=== PATIENT | male | born 1950 | race Asian ===

== ENCOUNTER 2016-09-26 12:33 | Outpatient (CLI) | payer OTHER ==
[~2016-09-26 12:33] MED LIST: ALLO300T23 PO; BENICAR20 MG PO; CALCITRIOL0.5 MCG OR; COLC0.6T6 PO; COZAAR25 MG PO; FERROUS SULF324 MG PO; FURO40TA93 PO; GLYB5TAB65 PO; HYDROCODONE; LIPITOR20 MG PO; LORTAB 10-325 M1 TAB PO; METO5TAB38 PO; OMEP20CA PO; ONDA4TAB3 PO; PANT40TA PO; PREDNISONE5 MG PO; TEMA30CA18 PO; TRAM50TA PO; VITAMIN D5000 UNIT OR
[2016-09-26 13:03] LABS: POTASSIUM 5.6 mmol/L (3.6-5.2)
== END 2016-09-26 22:40 | disposition home or self-care (01) ==
LOC: LAB 12:33
PROVIDERS: Internal Medicine Cardiovascular Disease
DX: I51.7 Cardiomegaly (principal); I27.2 Other secondary pulmonary hypertension; I25.10 Atherosclerotic heart disease of native coronary artery without angina pectoris; E11.9 Type 2 diabetes mellitus without complications; Z79.899 Other long term (current) drug therapy; Z51.81 Encounter for therapeutic drug level monitoring; J96.00 Acute respiratory failure, unspecified whether with hypoxia or hypercapnia
CPT/HCPCS: 80053; 80061

== ENCOUNTER 2017-02-20 11:31 | Outpatient (CLI) | payer OTHER | END 2017-02-20 12:35 | disposition home or self-care (01) | LOC: LAB 11:31 | DX: D53.8 Other specified nutritional anemias (principal); M17.0 Bilateral primary osteoarthritis of knee; M1A.09X1 Idiopathic chronic gout, multiple sites, with tophus (tophi) | CPT/HCPCS: 84550 ==

== ENCOUNTER 2017-05-07 00:42 | Outpatient (CLI) | payer OTHER | END 2017-05-07 00:48 | disposition short-term general hospital (02) | LOC: AMB 00:42 | DX: J45.901 Unspecified asthma with (acute) exacerbation (principal) | CPT/HCPCS: A0425; A0427 ==

== ENCOUNTER 2017-05-07 00:50 | Emergency (ER) | payer OTHER ==
[~2017-05-07] VITALS: Ht 177.8 cm; Wt 117.9 kg
[2017-05-07 02:01] LABS: PLATELET COUNT 268 K/uL (142-355)
[2017-05-07 02:23] LABS: POTASSIUM 3.8 mmol/L (3.6-5.2)
[2017-05-07 04:10] VITALS: BP 127/79; TEMP 98.4
== END 2017-05-07 04:12 | disposition home or self-care (01) ==
LOC: ED 00:50
DX: R06.09 Other forms of dyspnea (principal); N18.9 Chronic kidney disease, unspecified; I10 Essential (primary) hypertension; I44.7 Left bundle-branch block, unspecified
CPT/HCPCS: 80053; 80307; 81000; 85027; 93005; 94640; 94664; 94760; 96374; 96375; 99284; G0479; J1642; J1940; J2270

== ENCOUNTER 2017-05-25 07:35 | Outpatient (CLI) | payer OTHER ==
[2017-05-25] MEDS ORDERED: KRISTALOSE20 GM OR (08:24)
[2017-05-25] MEDS ORDERED: HYDR25CA25 PO (08:24)
[2017-05-25] MEDS ORDERED: LIPITOR40 MG PO (08:25)
[2017-05-25] MEDS ORDERED: METOCLOPRAM10 MG OR (08:26)
[2017-05-25] MEDS ORDERED: METO5TAB38 PO (08:27)
[2017-05-25] MEDS ORDERED: PROTONIX20 MG PO (08:27)
[2017-05-25] MEDS ORDERED: PHOSLO667 MG OR (08:28)
[2017-05-25] MEDS ORDERED: [UNRECOGNIZED DRUG - CODE] INJ (08:29)
[2017-05-25] MEDS ORDERED: ASPIRIN 8181 MG PO (08:30)
[2017-05-25] MEDS ORDERED: BENADRYL ALLERG25 MG OR (08:31)
[2017-05-25] MEDS ORDERED: CARBIDOPA25 MG PO (08:31)
[2017-05-25] MEDS ORDERED: CARBTAB6 PO (08:32)
[2017-05-25] MEDS ORDERED: CARV3.12 PO (08:33)
[2017-05-25] MEDS ORDERED: CLOPIDOGREL75 MG PO (08:34)
[2017-05-25] MEDS ORDERED: DOCU100C10 PO (08:34)
[2017-05-25] MEDS ORDERED: DIALYVITE800 MG OR (08:35)
[2017-05-25] MEDS ORDERED: TRAM50TA PO (08:36)
[2017-05-25] MEDS ORDERED: VIAGRA50 MG OR (08:37)
== END 2017-05-25 07:41 | disposition short-term general hospital (02) ==
LOC: AMB 07:35
DX: R06.09 Other forms of dyspnea (principal)
CPT/HCPCS: A0425; A0427

== ENCOUNTER 2017-05-25 07:48 | Emergency (ER) | payer OTHER ==
[~2017-05-25] VITALS: Ht 180.3 cm; Wt 113.4 kg
[2017-05-25 07:54] VITALS: TEMP 97.9
[2017-05-25 08:19] LABS: PLATELET COUNT 224 K/uL (142-355)
[2017-05-25] MEDS ORDERED: HYDR25CA25 PO (08:24)
[2017-05-25] MEDS ORDERED: KRISTALOSE20 GM OR (08:24)
[2017-05-25] MEDS ORDERED: LIPITOR40 MG PO (08:25)
[2017-05-25] MEDS ORDERED: METOCLOPRAM10 MG OR (08:26)
[2017-05-25] MEDS ORDERED: METO5TAB38 PO (08:27)
[2017-05-25] MEDS ORDERED: PROTONIX20 MG PO (08:27)
[2017-05-25] MEDS ORDERED: PHOSLO667 MG OR (08:28)
[2017-05-25] MEDS ORDERED: [UNRECOGNIZED DRUG - CODE] INJ (08:29)
[2017-05-25] MEDS ORDERED: ASPIRIN 8181 MG PO (08:30)
[2017-05-25] MEDS ORDERED: CARBIDOPA25 MG PO (08:31)
[2017-05-25] MEDS ORDERED: BENADRYL ALLERG25 MG OR (08:31)
[2017-05-25] MEDS ORDERED: CARBTAB6 PO (08:32)
[2017-05-25 08:33] LABS: POTASSIUM 4.6 mmol/L (3.6-5.2)
[2017-05-25] MEDS ORDERED: CARV3.12 PO (08:33)
[2017-05-25] MEDS ORDERED: CLOPIDOGREL75 MG PO (08:34)
[2017-05-25] MEDS ORDERED: DOCU100C10 PO (08:34)
[2017-05-25] MEDS ORDERED: DIALYVITE800 MG OR (08:35)
[2017-05-25] MEDS ORDERED: TRAM50TA PO (08:36)
[2017-05-25] MEDS ORDERED: VIAGRA50 MG OR (08:37)
[2017-05-25 11:10] VITALS: BP 115/70
== END 2017-05-25 12:04 | disposition home or self-care (01) ==
LOC: ED 07:48
DX: J06.9 Acute upper respiratory infection, unspecified (principal); N18.5 Chronic kidney disease, stage 5; I44.7 Left bundle-branch block, unspecified
CPT/HCPCS: 80053; 85027; 93005; 96374; 99284; J1642

== ENCOUNTER 2017-05-29 03:44 | Outpatient (CLI) | payer OTHER ==
[~2017-05-29 03:44] MED LIST changes: +ASPIRIN 8181 MG PO; +BENADRYL ALLERG25 MG OR; +CARBIDOPA25 MG PO; +CARBTAB6 PO; +CARV3.12 PO; +CLOPIDOGREL75 MG PO; +DIALYVITE800 MG OR; +DOCU100C10 PO; +HYDR25CA25 PO; +KRISTALOSE20 GM OR; +LIPITOR40 MG PO; +METOCLOPRAM10 MG OR; +PHOSLO667 MG OR; +PROTONIX20 MG PO; +VIAGRA50 MG OR; +[UNRECOGNIZED DRUG - CODE] INJ
== END 2017-05-29 03:50 | disposition short-term general hospital (02) ==
LOC: AMB 03:44
DX: R06.09 Other forms of dyspnea (principal)
CPT/HCPCS: A0425; A0427

== ENCOUNTER 2017-05-29 03:50 | Emergency (ER) | payer OTHER ==
[~2017-05-29] VITALS: Ht 180.3 cm; Wt 113.4 kg
[2017-05-29 04:31] LABS: PLATELET COUNT 242 K/uL (142-355)
[2017-05-29 04:52] LABS: POTASSIUM 4.1 mmol/L (3.6-5.2)
[2017-05-29 05:52] LABS: PARTIAL THROMBOPLASTIN TIME > 192.0 SECONDS (24.5-33.6)
[2017-05-29 06:16] VITALS: BP 145/73; TEMP 98.2
== END 2017-05-29 06:18 | disposition home or self-care (01) ==
LOC: ED 03:50
DX: I50.9 Heart failure, unspecified (principal); N18.6 End stage renal disease; Z99.2 Dependence on renal dialysis; I44.7 Left bundle-branch block, unspecified
CPT/HCPCS: 36415; 36600; 51702; 80053; 81000; 82550; 82553; 82805; 83880; 84484; 85027; 85610; 85730; 93005; 96374; 96375; 99283; J1642; J1940; J2270; J2930

== ENCOUNTER 2017-06-15 22:27 | Outpatient (CLI) | payer OTHER ==
[2017-06-16] MEDS ORDERED: ONDA4TAB3 PO (00:31)
[2017-06-16] MEDS ORDERED: GLIP10TA55 PO (00:31)
[2017-06-16] MEDS ORDERED: ALLO100T22 PO (00:32)
[2017-06-16] MEDS ORDERED: SENNOSIDES8.6 MG PO (00:33)
[2017-06-16] MEDS ORDERED: VITAMIN D32000 UNIT PO (00:34)
[2017-06-16] MEDS ORDERED: CASCARA SAGR450 MG PO (00:34)
[2017-07-31] MEDS ORDERED: OMEPRAZOLE20 M1 PO (00:29)
[2017-07-31] MEDS ORDERED: ONDA4TAB3 PO (00:29)
[2017-07-31] MEDS ORDERED: GLIP10TA55 PO (15:49)
[2017-07-31] MEDS ORDERED: PREDNISONE10 MG OR (16:00)
[2017-07-31] MEDS ORDERED: ROPINIROLE0.25 MG PO (16:02)
== END 2017-06-15 22:37 | disposition short-term general hospital (02) ==
LOC: AMB 22:27
DX: R06.02 Shortness of breath (principal); I50.9 Heart failure, unspecified; Z99.81 Dependence on supplemental oxygen
CPT/HCPCS: A0425; A0427

== ENCOUNTER 2017-06-15 22:35 | Emergency (ER) | payer OTHER ==
[~2017-06-15] VITALS: Ht 177.8 cm; Wt 147.4 kg
[2017-06-15 23:55] LABS: POTASSIUM 4.6 mmol/L (3.6-5.2)
[2017-06-16] MEDS ORDERED: GLIP10TA55 PO (00:31)
[2017-06-16] MEDS ORDERED: ONDA4TAB3 PO (00:31)
[2017-06-16] MEDS ORDERED: ALLO100T22 PO (00:32)
[2017-06-16] MEDS ORDERED: SENNOSIDES8.6 MG PO (00:33)
[2017-06-16] MEDS ORDERED: CASCARA SAGR450 MG PO (00:34)
[2017-06-16] MEDS ORDERED: VITAMIN D32000 UNIT PO (00:34)
[2017-06-16 03:41] VITALS: BP 156/91; TEMP 98.4
[2017-07-31] MEDS ORDERED: ONDA4TAB3 PO (00:29)
[2017-07-31] MEDS ORDERED: OMEPRAZOLE20 M1 PO (00:29)
[2017-07-31] MEDS ORDERED: GLIP10TA55 PO (15:49)
[2017-07-31] MEDS ORDERED: PREDNISONE10 MG OR (16:00)
[2017-07-31] MEDS ORDERED: ROPINIROLE0.25 MG PO (16:02)
== END 2017-06-16 03:44 | disposition short-term general hospital (02) ==
LOC: ED 22:35
PROVIDERS: Specialist
DX: I50.9 Heart failure, unspecified (principal); N18.9 Chronic kidney disease, unspecified; R00.0 Tachycardia, unspecified; I44.7 Left bundle-branch block, unspecified
CPT/HCPCS: 36591; 36600; 80053; 82805; 83605; 83880; 84484; 85379; 93005; 96365; 96366; 96375; 99285; J1940; J3490

== ENCOUNTER 2017-06-16 03:38 | Outpatient (CLI) | payer OTHER ==
[~2017-06-16 03:38] MED LIST changes: +ALLO100T22 PO; +CASCARA SAGR450 MG PO; +GLIP10TA55 PO; +SENNOSIDES8.6 MG PO; +VITAMIN D32000 UNIT PO
[2017-07-31] MEDS ORDERED: OMEPRAZOLE20 M1 PO (00:29)
[2017-07-31] MEDS ORDERED: ONDA4TAB3 PO (00:29)
[2017-07-31] MEDS ORDERED: GLIP10TA55 PO (15:49)
[2017-07-31] MEDS ORDERED: PREDNISONE10 MG OR (16:00)
[2017-07-31] MEDS ORDERED: ROPINIROLE0.25 MG PO (16:02)
== END 2017-06-16 04:35 | disposition short-term general hospital (02) ==
LOC: AMB 03:38
DX: I50.9 Heart failure, unspecified (principal); N18.9 Chronic kidney disease, unspecified; R00.0 Tachycardia, unspecified; I44.7 Left bundle-branch block, unspecified
CPT/HCPCS: A0425; A0427

== ENCOUNTER 2017-07-12 12:23 | Outpatient (CLI) | payer OTHER ==
[2017-07-31] MEDS ORDERED: OMEPRAZOLE20 M1 PO (00:29)
[2017-07-31] MEDS ORDERED: ONDA4TAB3 PO (00:29)
[2017-07-31] MEDS ORDERED: GLIP10TA55 PO (15:49)
[2017-07-31] MEDS ORDERED: PREDNISONE10 MG OR (16:00)
[2017-07-31] MEDS ORDERED: ROPINIROLE0.25 MG PO (16:02)
== END 2017-07-12 22:19 | disposition home or self-care (01) ==
LOC: LAB 12:23
DX: D64.89 Other specified anemias (principal)
CPT/HCPCS: 85018

== ENCOUNTER 2017-07-22 17:48 | Outpatient (CLI) | payer OTHER ==
[2017-07-23] MEDS ORDERED: HYDR10TA47A PO ×2 (10:17)
[2017-07-23] MEDS ORDERED: PANTOPRAZOLE 40MG TA PO ×2 (10:18)
[2017-07-23] MEDS ORDERED: REQUIP0.25 MG OR (10:19)
== END 2017-07-22 17:56 | disposition short-term general hospital (02) ==
LOC: AMB 17:48
DX: R06.02 Shortness of breath (principal)
CPT/HCPCS: A0425; A0427

== ENCOUNTER 2017-07-22 17:56 | Inpatient (IN) | payer OTHER ==
[~2017-07-22] VITALS: Ht 179.1 cm; Wt 110.9 kg
[2017-07-22 18:00] VITALS: BP 168/93; TEMP 96.7
[2017-07-22 18:50] LABS: PLATELET COUNT 289 K/uL (142-355)
[2017-07-22 19:07] LABS: POTASSIUM 3.9 mmol/L (3.6-5.2)
--- NOTE | 2017-07-22 20:35 | NUR ---
67 YR OLD MALE PT ADMITTED FROM ER TO ICU 1 ON CPAP. BROUGHT IN BY EMS ON CPAP FOR SOB. BNP WAS ELEVATED. ADMITTED FOR ACUTE RESP DISTRESS. HX GOUT, DM, HIGH CHOLESTEROL, CHF, GERD, PACEMAKER, CRF (GOES TO DIALYSIS ON SAT). PT BROUGHT VIA STRETCHER, PT IS ALERT AND ORIENTED X4 TALKING WITH STAFF. DENIES ANY PAIN OR OTHER PROBLEMS AT THIS TIME. 20G PORTACATH INTACT TO L UPPER CHEST WITH NO PROBLEMS NOTED TO SITE, PT STATES HE DOES NOT PRODUCE URINE, LAST BM TODAY, LIST OF HOME MEDS MADE FROM [facility] THAT BROUGHT WITH PT(MEDS SENT HOME WITH ), PT AND EDUCATED ON ALL ASPECTS OF CARE(ORDERS/TREATMENT/INTERVENTIONS). LUNGS DIMINISHED BILATERALLY, RESP RATE NONLABORED 18-16 WITH NO SOB NOTED. RESP WILL BE AT BEDSIDE TO EVALUATE O2 THERAPY. WILL MONITOR, RAILS UP, BED IN LOW POSITION, ENCOURAGED TO CALL NEEDED, PT ACKNOWLEDGES UNDERSTANDING.
[2017-07-22 21:25] VITALS: BP 115/69
[2017-07-22 22:00] VITALS: BP 114/68
[2017-07-22 23:00] VITALS: BP 109/64
[2017-07-23] VITALS (25 sets, daily range): BP systolic 96–127; BP diastolic 57–88; TEMP 97.8–98.9; Ht 179.1 cm; Wt 110.9 kg
--- NOTE | 2017-07-23 00:20 | NUR ---
PT RESTING WITH EYES CLOSED, NO S/S OF PAIN OR DISTRESS NOTED, PORTACATH INTACT, RESP RATE NONLABORED, BIPAP IN USE WITH FIO2 OF 40%, WILL MONITOR, RAILS UP, BED IN LOW POSITION.
--- NOTE | 2017-07-23 04:45 | NUR ---
CONTINUES TO REST WITH EYES CLOSED AND NO DISTRESS NOTED, RESP RATE NONLABORED, BIPAP IN USE, COKE HANDLING SUPERVISOR IN USE, VITALS STABLE, WILL MONITOR, RAILS UP, BED IN LOW POSITION.
--- NOTE | 2017-07-23 06:15 | NUR ---
REPORTED TO DR. VELASCO THAT PT'S PO2 WAS 223 ON MORNING ABG AND THAT FIO2 WAS DECREASED BY RESP TO 50%.
--- NOTE | 2017-07-23 07:00 | NUR ---
REPORT FROM PM STAFF.PT RESING WITH EYES CLOSED.O2 SAT 100%.
--- NOTE | 2017-07-23 07:34 | NUR ---
LAB IN FOR BLOOD DRAW. PT RESTING QUIETLY,NO C/O.
--- NOTE | 2017-07-23 07:45 | NUR ---
ANTONIETA ORTEGA RN/DIALYSIS NOTOFIED OF NEED FOR CONSULT FOR DIALYSIS.
[2017-07-23 07:48] LABS: PLATELET COUNT 274 K/uL (142-355)
[2017-07-23 08:04] LABS: POTASSIUM 4.2 mmol/L (3.6-5.2)
--- NOTE | 2017-07-23 08:18 | NUR ---
PT WITH BS/LAB OF 35.SKIN COOL/CLAMMY,D50 1/2 AMP IVP,CATHRYN VANG ROCKET SCIENTIST NOTIFIED.
--- NOTE | 2017-07-23 08:30 | NUR ---
BS UP TO 79,ANTONIETA ORTEGA CALLED BACK ABOUT PT.
--- NOTE | 2017-07-23 09:15 | NUR ---
PT MORE ALERT,WANTING TO EAT,O2 CHANGED TO NC 3L/RESP. O2SATS [id number]%.
--- NOTE | 2017-07-23 09:26 | NUR ---
PT'S BS 62, PT FEEDING SELF BREAKFAST.ANTONIETA ORTEGA RN HERE SETTING UP FOR DIALYSIS.
--- NOTE | 2017-07-23 10:15 | NUR ---
DIALYSIS STARTED PER ANTONIETA ORTEGA RN. PT RESTING WITH EYES CLOSED.
[2017-07-23] MEDS ORDERED: HYDR10TA47A PO (10:17)
[2017-07-23] MEDS ORDERED: PANTOPRAZOLE 40MG TA PO (10:18)
[2017-07-23] MEDS ORDERED: REQUIP0.25 MG OR (10:19)
--- NOTE | 2017-07-23 12:13 | NUR ---
FSBS 51,P GIVEN APPLE JUICE 120 ML.
--- NOTE | 2017-07-23 12:34 | NUR ---
PT C/O 'ALL OVER ACHES & PAIN,MEDICATED WITH HYDROCONE 10/325MG PO.
--- NOTE | 2017-07-23 13:33 | NUR ---
FSBS 41 , 1/2 D50 IVP GIVEN PER BRYAN LACEY RN.
--- NOTE | 2017-07-23 16:10 | NUR ---
PT'S FSBS 46,PT ATE LUNCH AFTER DIALYSIS. APPLE JUICE 120 ML GIVEN PO, REPORTED TO CATHRYN VANG CAR MECHANIC. NEW ORDERS.
--- NOTE | 2017-07-23 17:05 | NUR ---
D51/2 NS STARTED AT 50 ML/HR.
[2017-07-24] VITALS: BP 105/51; TEMP 98
--- NOTE | 2017-07-24 01:58 | NUR ---
RECHECKED PT'S BLOOD SUGAR. 86.
--- NOTE | 2017-07-24 02:43 | NUR ---
PATIENT CONTINUES TO REST WITH HIS EYES CLOSED. SNORING RESP. PT'S LUNGS ARE CTA. CM WITH SR. BP STABLE.
--- NOTE | 2017-07-24 05:47 | NUR ---
PT WAS TRANSFERRED TO XRAY FOR 2 VIEW CHEST. PT COMPLAINED OF PAIN. MEDICATED WITH HYDROCODONE ORDERED.
[2017-07-24 06:17] LABS: PLATELET COUNT 256 K/uL (142-355)
[2017-07-24 06:32] LABS: POTASSIUM 3.9 mmol/L (3.6-5.2)
[2017-07-24 07:00] VITALS: BP 120/66
[2017-07-24 08:00] VITALS: BP 114/67; TEMP 98
--- NOTE | 2017-07-24 08:10 | NUR ---
PT HAVING DIALYSIS DONE. ANTONIETA ORTEGA RN HERE AT BEDSIDE.
[2017-07-24 09:00] VITALS: BP 124/80
--- NOTE | 2017-07-24 09:15 | NUR ---
CATHRYN VANG CARGO SERVICE AGENT VISITED, ALSO DR STONER VISITED. PT CONTINUES ON DIALYSIS. RECIEVED ORDERS.
[2017-07-24 10:00] VITALS: BP 130/77
--- NOTE | 2017-07-24 10:41 | NUR ---
DIALYSIS CONTINUES PT C/O NAUSEA. NO VOMITING. RECIEVED ZOFRAN 0.4 MG PO. TOOK BITES SALTINE CRACKERS. ANTONIETA ORTEGA AT BEDSIDE.
[2017-07-24 11:00] VITALS: BP 125/77; TEMP 97.8
--- NOTE | 2017-07-24 12:55 | NUR ---
DIALYSIS FINISHED E[facility]LIER [facility]. ANTONIETA ORTEGA RN ABLE TO PULL OFF 1500 ML POST WT. 244.8. PT'S FAMILY HERE. FLUSHED PORT 4ML 100U HEPARIN BY JENNIFER MCALLISTER RN. REMOVED ACCESS NEEDLE. NO BLEEEDING NO SWELLING. REVIEWED DISCHARGE ORDERS PT VERBALIZED UNDERSTANDING. ASSIST TO W/C TO PRIVATE VEHICLE TO GO HOME. NO COMPLAINTS VOICED DISCHARGED FROM ICU.
[2017-07-31] MEDS ORDERED: OMEPRAZOLE20 M1 PO (00:29)
[2017-07-31] MEDS ORDERED: ONDA4TAB3 PO (00:29)
[2017-07-31] MEDS ORDERED: GLIP10TA55 PO (15:49)
[2017-07-31] MEDS ORDERED: PREDNISONE10 MG OR (16:00)
[2017-07-31] MEDS ORDERED: ROPINIROLE0.25 MG PO (16:02)
== END 2017-07-24 12:55 | disposition home or self-care (01) | DRG 291 ==
LOC: ED 17:56 → ICU 19:45
PROVIDERS: Family Medicine
PROC: 5A1D70Z Performance of Urinary Filtration, Intermittent, Less than 6 Hours Per Day (ICD-10-PCS; principal; 2017-07-23)
PROC: 5A1D70Z Performance of Urinary Filtration, Intermittent, Less than 6 Hours Per Day (ICD-10-PCS; 2017-07-24)
DX: I13.2 Hypertensive heart and chronic kidney disease with heart failure and with stage 5 chronic kidney disease, or end stage renal disease (principal); N18.6 End stage renal disease; I50.31 Acute diastolic (congestive) heart failure; E87.79 Other fluid overload; D64.89 Other specified anemias; R73.9 Hyperglycemia, unspecified; E11.22 Type 2 diabetes mellitus with diabetic chronic kidney disease
CPT/HCPCS: 36591; 80053; 82962; 83880; 85027; 94760; 99285; J1642; J1644; J7060

== ENCOUNTER 2017-07-30 21:41 | Inpatient (IN) | payer OTHER ==
[~2017-07-30] VITALS: Ht 180.3 cm; Wt 112.2 kg
[~2017-07-30 21:41] MED LIST changes: +HYDR10TA47A PO; +PANTOPRAZOLE 40MG TA PO; +REQUIP0.25 MG OR
[2017-07-30 22:09] VITALS: BP 156/81; TEMP 97.9
[2017-07-30 22:38] LABS: PLATELET COUNT 296 K/uL (142-355)
[2017-07-31] VITALS (24 sets, daily range): BP systolic 94–133; BP diastolic 54–71; TEMP 97.4–98.9; Ht 180.3 cm; Wt 112.2 kg
[2017-07-31] MEDS ORDERED: ONDA4TAB3 PO ×2 (00:29)
[2017-07-31] MEDS ORDERED: OMEPRAZOLE20 M1 PO ×2 (00:29)
--- NOTE | 2017-07-31 00:40 | NUR ---
67 YR OLD MALE PT ADMITTED FROM ER WITH DIAGNOSIS OF DYSPNEA, ESRD WITH FLUID OVERLOAD, HYPOXEMIA, HYPERCARBIA, RESP ACIDOSIS. HISTORY OF GERD, GOUT, ESRD WITH DIALYSIS ON Sun AND SAT, DM, PACEMAKER. PT HAS PORTACATH INTACT TO L UPPER CHEST WITH NO PROBLEMS NOTED TO SITE. DIALYSIS SHUNT TO L ARM. HANDS AND FEET COOL TO TOUCH. PT IS ALERT AND ORIENTED X4 WITH NO S/S OF DISTRESS NOTED. EDUCATED PT ABOUT HIS ORDERS/CARE. ON BIPAP WITH FIO2 40% 18/. WILL MONITOR CLOSELY, RAILS UP X3, BED IN LOW POSITION, ENCOURAGED TO CALL NEEDED. EDUCATED ABOUT BED AND CALL LIGHT CONTROLS.
--- NOTE | 2017-07-31 03:03 | NUR ---
PT RESTING IN BED WITH EYES CLOSED, NO S/S OF PAIN OR DISTRESS NOTED, PORTACATH INTACT TO L UPPER CHEST, RESP RATE NONLABORED, BIPAP IN USE, VITALS BEING MONITORED, WILL MONITOR CLOSELY, RAILS UP X3, BED IN LOW POSITION.
--- NOTE | 2017-07-31 05:30 | NUR ---
PT CONTINUES TO REST QUIETLY IN BED WITH EYES CLOSED, NO S/S OF PAIN OR DISTRESS NOTED, PORTACATH INTACT TO L UPPER CHEST, RESP RATE NONLABORED, ON BIPAP WITH FIO2 OF 40% AND O2 SAT 100% AT THIS TIME, VITALS BEING MONITORED, WILL MONITOR PT CLOSELY, RAILS UP, BED IN LOW POSITION.
[2017-07-31 06:36] LABS: PLATELET COUNT 266 K/uL (142-355)
[2017-07-31 07:00] LABS: POTASSIUM 5.8 mmol/L (3.6-5.2)
--- NOTE | 2017-07-31 09:40 | NUR ---
PT PLACED ON ETCO2 MONITOR WITH 3LPM O2 AT THIS TIME DURING DIALYSIS. ETCO2-50 SPO2-98% ANTONIETA ORTEGA LPN AT BEDSIDE.
--- NOTE | 2017-07-31 09:45 | NUR ---
BLOOD SUGAR CHECKED 41. 1 AMP D50 GIVEN PER ANTONIETA ORTEGA RN GIVEN.
--- NOTE | 2017-07-31 10:19 | NUR ---
RECHECK OF GLUCOSE 108. PATIENT STATES THAT HE FEELS BETTER.
--- NOTE | 2017-07-31 10:24 | NUR ---
ANTONIETA ORTEGA RN AT BEDSIDE. DIALYSIS STARTED.
--- NOTE | 2017-07-31 12:26 | NUR ---
RESTING QUIETLY IN BED EYES CLOSED, CONTINUES ON DIALYSIS [facility]. WILL START IV FLUIDS D5W AT 50 ML HR. CONTINUE TO MONITOR BLOOD SUGAR.
--- NOTE | 2017-07-31 14:04 | NUR ---
FINISHED DIALYSIS. [facility] OK. C/O PAIN WILL CHECK HOME MED LIST, ASKED PAIN STATED "PAIN ALL OVER" CHECKED BLOOD SUGAR 65. D5W CONTINUES AT 50 ML HR. PATIENT RECIEVED LUNCH TRAY.
[2017-07-31] MEDS ORDERED: GLIP10TA55 PO ×2 (15:49)
[2017-07-31] MEDS ORDERED: PREDNISONE10 MG OR ×2 (16:00)
[2017-07-31] MEDS ORDERED: ROPINIROLE0.25 MG PO ×2 (16:02)
--- NOTE | 2017-07-31 18:28 | NUR ---
SITTING UP IN BED EATING DINNER EATING OK. D5 INFUSING AT 50 ML HR. LAST BLOOD SUGAR 68 WILL CONTINUE TO MONITOR.
--- NOTE | 2017-07-31 18:53 | NUR ---
BLOOD SUGAR 96.
--- NOTE | 2017-07-31 21:00 | NUR ---
PT AWAKE WATCHING TV, DENIES ANY NEEDS OR PROBLEMS AT THIS TIME, PORTACATH INTACT TO L UPPER CHEST WITH FLUIDS ONGOING, RESP RATE NONLABORED, PT ATE NIGHTLY DIABETIC SNACK. WILL MONITOR, RAILS UP X3, BED IN LOW POSITION.
[2017-08-01] VITALS (17 sets, daily range): BP systolic 106–156; BP diastolic 56–100; TEMP 97.9–99
--- NOTE | 2017-08-01 00:05 | NUR ---
PT AWAKE AND ALERT SITTING UP IN POSITION OF COMFORT IN BED WATCHING TV, DENIES ANY PROBLEMS, HELPED PT REPOSITIONED PILLOWS BEHIND NECK/HEAD, RESP RATE NONLABORED, O2 IN USE, VITALS BEING MONITORED, PICKER BOX OPERATOR IN USE. PT WAS TAKEN OFF BIPAP AROUND 2330 TO USE BATHROOM. O2 AT 2LPM VIA NC WITH SAT OF 99-100% WITH NO DISTRESS NOTED. RESPIRATORY PUT PT BACK ON BIPAP AROUND 0030 WITH FIO2 OF 30%, PT TOLERATING WITH NO PROBLEMS. WILL MONITOR, RAILS UP X3, BED IN LOW POSITION. ENCOURAGED TO CALL NEEDED.
--- NOTE | 2017-08-01 02:18 | NUR ---
PT RESTING QUIETLY IN BED WITH EYES CLOSED, NO S/S OF PAIN OR DISTRESS NOTED, BIPAP IN USE WITH FIO2 OF 30%, RESP RATE NONLABORED, VITALS BEING MONITORED, PORTACATH INTACT TO L UPPER CHEST WITH FLUID ONGOING, WILL MONITOR, RAILS UP X 3, BED IN LOW POSITION.
--- NOTE | 2017-08-01 04:05 | NUR ---
RESTING WITH EYES CLOSED, NO S/S OF PAIN OR DISTRESS NOTED, PORTACATH INTACT TO L UPPER CHEST WITH NO PROBLEMS NOTED AND FLUID ONGOING, RESP RATE NONLABORED, BIPAP WITH FIO2 OF 30% IN USE, WILL MONITOR, RAILS UP, BED IN LOW POSITION.
[2017-08-01 06:29] LABS: PLATELET COUNT 270 K/uL (142-355)
--- NOTE | 2017-08-01 06:31 | NUR ---
AWAKE WITH NO DISTRESS, DENIES ANY NEEDS. TAKEN OFF BIPAP, NOW ON O2 AT 2LPM VIA NC WITH SAT OF 99%, RESP RATE NONLABORED, PORTACATH INTACT TO L UPPER CHEST WITH FLUID ONGOING AND NO PROBLEMS NOTED TO SITE, VITALS BEING MONITORED, COMPTROLLER IN USE, PT NOW SITTING UP WATCHING TV IN BED, WILL MONITOR, RAILS UP, BED IN LOW POSITION.
[2017-08-01 06:58] LABS: POTASSIUM 4.3 mmol/L (3.6-5.2); SODIUM 132 mmol/L (136-145)
--- NOTE | 2017-08-01 07:21 | NUR ---
PT ETCO2 IS MEASURING 55. SPO2 100% ON 2LPM. THE PATIENT IS SITTING UP WATCHING TV AT THIS TIME. BIPAP AT BEDSIDE.
--- NOTE | 2017-08-01 08:00 | NUR ---
ABNORMAL LABS REPORTED TO SHONNA GRANT. PATIENT COMPLAINS OF NAUSEA. HOME MED ZOFRAN RESTARTED.
--- NOTE | 2017-08-01 08:30 | NUR ---
DR. TRONCOSO AND CATHRYN VANG AT BEDSIDE.
--- NOTE | 2017-08-01 13:00 | NUR ---
C/O NAUSEA. SMALL AMOUNT OF VOMIT NOTED IN BASIN. ZOFRAN GIVEN.
--- NOTE | 2017-08-01 14:00 | NUR ---
REPORT RECEIVED FROM ANTONIETA ORTEGA RN. POST DIALYSIS WT 242.9 VITALS: BP-128/79 P-85 R-20 TEMP- 98.8 O2-100% 2700ML TOTAL REMOVED TODAY
--- NOTE | 2017-08-01 14:51 | NUR ---
PT SITTING ON SIDE OF BED AT THIS TIME. SPO2-95 ON 2LPM, HR-85, ETCO2-59 HEALTHY AT HOME-JIM[facility] IS COMING TO TALK WITH PT PER ANTONIETA ORTEGA RN.
--- NOTE | 2017-08-01 15:45 | NUR ---
PAC LT CHEST WALL CLEANED WITH ALCOHOL AND FLUSHED WITH 10ML NS. HEPARIN 100 UNITS/ML 5 ML USED TO FLUSH PAC. PORT DEACCESSED AND COVERED WITH 2X2.
--- NOTE | 2017-08-01 15:50 | NUR ---
DISCHARGE INSTRUCTIONS GIVEN TO PATIENT AND FAMILY. STRESSED IMPORTANCE OF DAILY WEIGHTS AND GLUCOSE MONITORING. FAMILY VERBALIZED UNDERSTANDING.
--- NOTE | 2017-08-01 15:55 | NUR ---
PATIENT DISCHARGED HOME STABLE VIA WHEELCHAIR TO PERSONAL VECHILE.
== END 2017-08-01 15:51 | disposition home or self-care (01) | DRG 291 ==
LOC: ED 21:41 → ICU 23:00
PROVIDERS: Emergency Medicine
PROC: 5A1D70Z Performance of Urinary Filtration, Intermittent, Less than 6 Hours Per Day (ICD-10-PCS; principal; 2017-07-31)
PROC: 5A1D70Z Performance of Urinary Filtration, Intermittent, Less than 6 Hours Per Day (ICD-10-PCS; 2017-08-01)
DX: I13.2 Hypertensive heart and chronic kidney disease with heart failure and with stage 5 chronic kidney disease, or end stage renal disease (principal); J96.02 Acute respiratory failure with hypercapnia; I50.43 Acute on chronic combined systolic (congestive) and diastolic (congestive) heart failure; N18.6 End stage renal disease; E87.1 Hypo-osmolality and hyponatremia; E87.2 Acidosis; E11.22 Type 2 diabetes mellitus with diabetic chronic kidney disease; D64.89 Other specified anemias; J44.9 Chronic obstructive pulmonary disease, unspecified; E87.5 Hyperkalemia; E66.8 Other obesity
CPT/HCPCS: 36415; 36600; 80053; 82805; 82947; 82962; 83880; 85027; 94760; 99285; J1642; J1644; J2405

== ENCOUNTER 2017-08-01 21:33 | Outpatient (CLI) | payer OTHER ==
[~2017-08-01 21:33] MED LIST changes: +OMEPRAZOLE20 M1 PO; +PREDNISONE10 MG OR; +ROPINIROLE0.25 MG PO
== END 2017-08-01 21:41 | disposition short-term general hospital (02) ==
LOC: AMB 21:33
DX: R06.02 Shortness of breath (principal)
CPT/HCPCS: A0425; A0427

== ENCOUNTER 2017-10-12 09:48 | Outpatient (CLI) | payer OTHER ==
[~2017-10-12 09:48] MED LIST changes: -PREDNISONE10 MG OR; +PREDNISONE10 MG PO
[2017-10-12] MEDS ORDERED: ROPINIROLE1 MG PO ×2 (21:22)
[2017-10-12] MEDS ORDERED: [UNRECOGNIZED DRUG - OTHER] PO ×2 (21:24)
== END 2017-10-12 09:54 | disposition short-term general hospital (02) ==
LOC: AMB 09:48
DX: R06.02 Shortness of breath (principal)
CPT/HCPCS: A0425; A0427

== ENCOUNTER 2017-10-22 03:18 | Outpatient (CLI) | payer OTHER ==
[~2017-10-22 03:18] MED LIST changes: +ROPINIROLE1 MG PO; +[UNRECOGNIZED DRUG - OTHER] PO
[2017-10-22] MEDS ORDERED: REQUIP0.25 MG OR ×2 (10:17→10:39)
[2017-10-22] MEDS ORDERED: TEMA30CA18 PO (10:38)
[2017-10-22] MEDS ORDERED: ALBUTEROL0.083 % IN (10:41)
[2017-10-22] MEDS ORDERED: REQUIP1 MG OR (10:42)
== END 2017-10-22 03:24 | disposition short-term general hospital (02) ==
LOC: AMB 03:18
DX: J44.1 Chronic obstructive pulmonary disease with (acute) exacerbation (principal)
CPT/HCPCS: A0425; A0427

== ENCOUNTER 2017-10-22 03:29 | Observation (INO) | payer OTHER ==
[2017-10-22] VITALS (12 sets, daily range): BP systolic 122–151; BP diastolic 69–89; TEMP 97.3–98.6; Ht 177.8 cm; Wt 110.7 kg
[~2017-10-22] VITALS: Ht 177.8 cm; Wt 110.7 kg
[2017-10-22 03:56] LABS: PLATELET COUNT 333 K/uL (142-355)
[2017-10-22 04:10] LABS: POTASSIUM 4.1 mmol/L (3.6-5.2)
[2017-10-22 05:22] LABS: PARTIAL THROMBOPLASTIN TIME 35.2 SECONDS (24.5-33.6)
[2017-10-22] MEDS ORDERED: REQUIP0.25 MG OR ×4 (10:17→10:39)
[2017-10-22] MEDS ORDERED: TEMA30CA18 PO ×2 (10:38)
[2017-10-22] MEDS ORDERED: ALBUTEROL0.083 % IN ×2 (10:41)
[2017-10-22] MEDS ORDERED: REQUIP1 MG OR ×2 (10:42)
== END 2017-10-22 17:35 | disposition home or self-care (01) ==
LOC: ED 03:29 → ICU 05:08
DX: I12.0 Hypertensive chronic kidney disease with stage 5 chronic kidney disease or end stage renal disease (principal); E11.22 Type 2 diabetes mellitus with diabetic chronic kidney disease; N18.6 End stage renal disease; Z99.2 Dependence on renal dialysis; E78.4 Other hyperlipidemia; K21.9 Gastro-esophageal reflux disease without esophagitis; G25.81 Restless legs syndrome; R06.02 Shortness of breath; J20.9 Acute bronchitis, unspecified; J84.89 Other specified interstitial pulmonary diseases
CPT/HCPCS: 36591; 36600; 80053; 81000; 82140; 82550; 82805; 83605; 83735; 83880; 85027; 85379; 85610; 85730; 93005; 94664; 94760; 96374; 99220; 99285; G0378; J1642; J1940

== ENCOUNTER 2017-11-11 08:05 | Outpatient (CLI) | payer OTHER ==
[~2017-11-11 08:05] MED LIST changes: +ALBUTEROL0.083 % IN; +REQUIP1 MG OR
== END 2017-11-11 08:15 | disposition short-term general hospital (02) ==
LOC: AMB 08:05
DX: R06.02 Shortness of breath (principal)
CPT/HCPCS: A0425; A0429

== ENCOUNTER 2017-11-11 08:31 | Emergency (ER) | payer OTHER ==
[~2017-11-11] VITALS: Ht 172.7 cm; Wt 113.4 kg
[2017-11-11 08:20] VITALS: TEMP 97.2
[2017-11-11 09:31] LABS: PLATELET COUNT 256 K/uL (142-355)
[2017-11-11 09:57] LABS: POTASSIUM 3.5 mmol/L (3.6-5.2)
[2017-11-11 12:00] VITALS: BP 109/68
== END 2017-11-11 12:00 | disposition home or self-care (01) ==
LOC: ED 08:31
DX: R60.9 Edema, unspecified (principal); I50.9 Heart failure, unspecified; I48.92 Unspecified atrial flutter; I44.7 Left bundle-branch block, unspecified
CPT/HCPCS: 36591; 36600; 80053; 82550; 82553; 82805; 83735; 83880; 84484; 85027; 85379; 93005; 96374; 99284; J1642; J1940

== ENCOUNTER 2017-11-17 00:44 | Outpatient (CLI) | payer OTHER | END 2017-11-17 00:52 | disposition short-term general hospital (02) | LOC: AMB 00:44 | DX: J44.1 Chronic obstructive pulmonary disease with (acute) exacerbation (principal) | CPT/HCPCS: A0425; A0427 ==

== ENCOUNTER 2017-11-17 01:13 | Observation (INO) | payer OTHER ==
[~2017-11-17] VITALS: Ht 182.9 cm; Wt 111.1 kg
[2017-11-17] VITALS (12 sets, daily range): BP systolic 113–158; BP diastolic 58–83; TEMP 97.8–98.7; Ht 182.9 cm; Wt 111.1 kg
[2017-11-17 01:42] LABS: PLATELET COUNT 247 K/uL (142-355)
[2017-11-17 01:52] LABS: POTASSIUM 4.4 mmol/L (3.6-5.2)
== END 2017-11-17 10:05 | disposition short-term general hospital (02) ==
LOC: ED 01:13 → ICU 01:55
DX: N18.5 Chronic kidney disease, stage 5 (principal); Z99.2 Dependence on renal dialysis; E87.79 Other fluid overload; R06.02 Shortness of breath
CPT/HCPCS: 36415; 36600; 80053; 82805; 83735; 83880; 85027; 94760; 96365; 99220; 99285; G0378; J0696

== ENCOUNTER 2017-11-17 10:14 | Outpatient (CLI) | payer OTHER | END 2017-11-17 11:15 | disposition short-term general hospital (02) | LOC: AMB 10:14 | DX: J44.1 Chronic obstructive pulmonary disease with (acute) exacerbation (principal) | CPT/HCPCS: A0425; A0427 ==

== ENCOUNTER 2017-11-27 05:43 | Outpatient (CLI) | payer OTHER | END 2017-11-27 05:49 | disposition short-term general hospital (02) | LOC: AMB 05:43 | DX: R06.02 Shortness of breath (principal) | CPT/HCPCS: A0425; A0427 ==

== ENCOUNTER 2017-11-27 05:57 | Emergency (ER) | payer OTHER ==
[~2017-11-27] VITALS: Ht 203.2 cm; Wt 111.1 kg
[2017-11-27 06:36] LABS: PLATELET COUNT 288 K/uL (142-355)
[2017-11-27 07:03] LABS: POTASSIUM 4.5 mmol/L (3.6-5.2); SODIUM 134 mmol/L (136-145)
[2017-11-27 07:20] VITALS: BP 158/84; TEMP 97.8
== END 2017-11-27 07:30 | disposition home or self-care (01) ==
LOC: ED 05:57
DX: N18.6 End stage renal disease (principal); R00.0 Tachycardia, unspecified
CPT/HCPCS: 36415; 80053; 83605; 83880; 84484; 85027; 87040; 93005; 99283

== ENCOUNTER 2017-12-06 02:33 | Outpatient (CLI) | payer OTHER ==
[~2017-12-06 02:33] MED LIST changes: -APIX1TAB PO; -CARB/LEVO1 TA2 PO; -METOLAZONE10 MG PO; -PRED10TA27 PO
== END 2017-12-06 02:39 | disposition short-term general hospital (02) ==
LOC: AMB 02:33
DX: R06.02 Shortness of breath (principal); Z99.2 Dependence on renal dialysis
CPT/HCPCS: A0425; A0427

== ENCOUNTER 2017-12-06 02:53 | Emergency (ER) | payer OTHER ==
[2017-12-06] VITALS (9 sets, daily range): BP systolic 108–172; BP diastolic 58–90; TEMP 98.5
[~2017-12-06] VITALS: Ht 203.2 cm; Wt 111.1 kg
[2017-12-06 03:25] LABS: PLATELET COUNT 245 K/uL (142-355)
[2017-12-06 03:30] LABS: POTASSIUM 4.3 mmol/L (3.6-5.2)
== END 2017-12-06 09:09 | disposition short-term general hospital (02) ==
LOC: ED 02:53 → ICU 04:30 → ED 04:30
DX: I50.9 Heart failure, unspecified (principal); J18.9 Pneumonia, unspecified organism; N18.9 Chronic kidney disease, unspecified; A41.9 Sepsis, unspecified organism; I44.7 Left bundle-branch block, unspecified
CPT/HCPCS: 36415; 36591; 36600; 80053; 82805; 83605; 83880; 85027; 87040; 93005; 94664; 94760; 96374; 99285; J0696; J1940; J2930

== ENCOUNTER → 2017-12-06 | Outpatient (CLI) | payer OTHER ==
[~2017-12-06] MED LIST changes: +APIX1TAB PO; +CARB/LEVO1 TA2 PO; +METOLAZONE10 MG PO; +PRED10TA27 PO
== END | disposition short-term general hospital (02) ==
LOC: AMB 08:53
DX: I50.9 Heart failure, unspecified (principal); J18.9 Pneumonia, unspecified organism; N18.9 Chronic kidney disease, unspecified; A41.9 Sepsis, unspecified organism; I44.7 Left bundle-branch block, unspecified
CPT/HCPCS: A0425; A0429

== ENCOUNTER 2018-02-11 21:37 | Outpatient (CLI) | payer OTHER | END 2018-02-11 21:45 | disposition short-term general hospital (02) | LOC: AMB 21:37 | DX: I50.9 Heart failure, unspecified (principal); R06.02 Shortness of breath | CPT/HCPCS: A0425; A0427 ==

== ENCOUNTER 2018-02-11 21:49 | Emergency (ER) | payer OTHER ==
[~2018-02-11] VITALS: Ht 203.2 cm; Wt 111.1 kg
[2018-02-11 22:34] LABS: PLATELET COUNT 212 K/uL (142-355)
[2018-02-11 22:46] LABS: POTASSIUM 3.7 mmol/L (3.6-5.2)
[2018-02-12 02:25] VITALS: BP 129/79; TEMP 97
== END 2018-02-12 02:27 | disposition home or self-care (01) ==
LOC: ED 21:49
PROVIDERS: Family Medicine
DX: I50.9 Heart failure, unspecified (principal); N18.6 End stage renal disease; J44.9 Chronic obstructive pulmonary disease, unspecified; J06.9 Acute upper respiratory infection, unspecified
CPT/HCPCS: 36415; 80053; 83880; 85027; 96372; 96374; 96375; 99284; J0696; J1642; J1940

== ENCOUNTER 2018-03-23 06:00 | Outpatient (CLI) | payer OTHER | END 2018-03-23 06:08 | disposition short-term general hospital (02) | LOC: AMB 06:00 | DX: R06.02 Shortness of breath (principal) | CPT/HCPCS: A0425; A0427 ==

== ENCOUNTER 2018-03-23 06:21 | Emergency (ER) | payer OTHER ==
[~2018-03-23] VITALS: Ht 180.3 cm; Wt 102.1 kg
[2018-03-23 06:40] LABS: PLATELET COUNT 318 K/uL (142-355)
[2018-03-23 07:00] LABS: POTASSIUM 3.9 mmol/L (3.6-5.2)
[2018-03-23 07:31] VITALS: BP 116/62; TEMP 98.2
== END 2018-03-23 07:45 | disposition home or self-care (01) ==
LOC: ED 06:21
DX: I50.9 Heart failure, unspecified (principal); N18.6 End stage renal disease; Z99.2 Dependence on renal dialysis; I48.92 Unspecified atrial flutter; I44.7 Left bundle-branch block, unspecified
CPT/HCPCS: 36415; 36600; 80053; 82550; 82553; 82805; 83880; 84484; 85027; 93005; 96374; 96375; 99284; J1642; J1940

== ENCOUNTER 2018-04-08 22:58 | Outpatient (CLI) | payer OTHER ==
[2018-04-09] MEDS ORDERED: APIX1TAB PO (00:50)
[2018-04-09] MEDS ORDERED: METOLAZONE10 MG PO (00:51)
[2018-04-09] MEDS ORDERED: PRED10TA27 PO (00:51)
[2018-04-09] MEDS ORDERED: ALLO100T22 PO (00:52)
[2018-04-09] MEDS ORDERED: CARB/LEVO1 TA2 PO (00:54)
[2018-04-09] MEDS ORDERED: [UNRECOGNIZED DRUG - OTHER] PO (00:54)
[2018-04-09] MEDS ORDERED: FURO40TA93 PO (00:56)
== END 2018-04-08 23:05 | disposition short-term general hospital (02) ==
LOC: AMB 22:58
DX: I50.9 Heart failure, unspecified (principal)
CPT/HCPCS: A0425; A0427

== ENCOUNTER 2018-04-08 23:12 | Emergency (ER) | payer OTHER ==
[~2018-04-08] VITALS: Ht 180.3 cm; Wt 102.1 kg
[2018-04-09] MEDS ORDERED: APIX1TAB PO (00:50)
[2018-04-09] MEDS ORDERED: PRED10TA27 PO (00:51)
[2018-04-09] MEDS ORDERED: METOLAZONE10 MG PO (00:51)
[2018-04-09] MEDS ORDERED: ALLO100T22 PO (00:52)
[2018-04-09] MEDS ORDERED: CARB/LEVO1 TA2 PO (00:54)
[2018-04-09] MEDS ORDERED: [UNRECOGNIZED DRUG - OTHER] PO (00:54)
[2018-04-09 00:56] LABS: PLATELET COUNT 275 K/uL (142-355)
[2018-04-09] MEDS ORDERED: FURO40TA93 PO (00:56)
[2018-04-09 01:28] LABS: POTASSIUM 4.2 mmol/L (3.6-5.2)
[2018-04-09 02:26] VITALS: BP 138/88; TEMP 97.3
== END 2018-04-09 02:27 | disposition home or self-care (01) ==
LOC: ED 23:12
DX: I50.9 Heart failure, unspecified (principal); N18.9 Chronic kidney disease, unspecified; Z99.2 Dependence on renal dialysis; I48.92 Unspecified atrial flutter
CPT/HCPCS: 36591; 36600; 80053; 82805; 83880; 85027; 93005; 94664; 96374; 99284; J1642; J1940

== ENCOUNTER 2019-01-07 11:22 | Outpatient (CLI) | payer OTHER ==
[~2019-01-07 11:22] MED LIST changes: +APIX1TAB PO; +CARB/LEVO1 TA2 PO; +METOLAZONE10 MG PO; +PRED10TA27 PO
== END 2019-01-07 23:17 | disposition home or self-care (01) ==
LOC: RAD 11:22
DX: M79.661 Pain in right lower leg (principal); M79.662 Pain in left lower leg; R22.41 Localized swelling, mass and lump, right lower limb; N18.6 End stage renal disease; Z99.2 Dependence on renal dialysis

== ENCOUNTER 2019-07-07 19:41 | Outpatient (CLI) | payer OTHER | END 2019-07-07 19:48 | disposition short-term general hospital (02) | LOC: AMB 19:41 | DX: R06.02 Shortness of breath (principal); R41.82 Altered mental status, unspecified; G25.2 Other specified forms of tremor | CPT/HCPCS: A0425; A0427 ==